=== PATIENT | female | born 1960 | race Caucasian/White ===

== ENCOUNTER 2021-10-25 17:06 | Emergency (ER) | payer MEDICARE, OTHER ==
[~2021-10-25] VITALS: Ht 167.6 cm; Wt 86.2 kg
--- NOTE | 2021-10-25 18:43 | NUR ---
pt ambulated to room 6 connected to monitor. 61 y/o female with LLQ abd pain x 2 days, denies burning with urination, abd soft tender LLQ, BSx4 active. PMHX total hyst 2005, reports nausea denies vomiting. ERP notified.
[2021-10-25 18:56] VITALS: BP 151/94
--- NOTE | 2021-10-25 19:00 | NUR ---
saline lock 20 sherry started in left AC aseptic tech secured with tegaderm and tape flushed with NS . blood drawn for lab prior to saline flush, urine collected for lab,
[2021-10-25] MEDS ORDERED: NS 1000ML 1,000 ML IV STA (19:07)
[2021-10-25] MEDS ORDERED: ZOFRAN IV STA (19:07)
--- NOTE | 2021-10-25 19:13 | ER.PDOC ---
General Chief Complaint: Requesting Medical Care Stated Complaint: LOWER ABD PAIN Time seen by MD: 19:10 Source: patient Exam Limitations: no limitations History of Present Illness Initial Comments Abdominal pain and nausea for 2 days. No vomiting or diarrhea. No fever or chills. Timing/Duration: constant Severity/Quality: moderate, sharpness Radiation: no radiation Associated Symptoms: nausea/vomiting Exacerbated by: nothing Relieved By: nothing Vital Signs First Vital Signs Date Time Temp Pulse Resp B/P (MAP) Pulse Ox O2 Delivery O2 Flow Rate FiO2 10/25/21 18:56 99.1 105 20 10/25/21 18:56 151/94 (113) 97 Room Air Last Vital Signs Date Time Temp Pulse Resp B/P (MAP) Pulse Ox O2 Delivery O2 Flow Rate FiO2 10/25/21 20:31 85 20 137/78 (97) 98 Room Air 10/25/21 20:02 99.1 Past Medical History Medical History: asthma, COPD, GERD, hypertension Surgical History: hysterectomy Family History Significant Family History: no pertinent family hx Social History Smoking: non-smoker Alcohol Use: none Drug Use: none Constitutional: no symptoms reported EENTM: no symptoms reported Respiratory: no symptoms reported Cardiovascular: no symptoms reported Gastrointestinal: see HPI All Other Systems: Reviewed and Negative Physical Exam General Appearance: No Apparent Distress, WD/WN Neck: Non-Tender, Full Range of Motion, Supple, Normal Inspection Respiratory: chest non-tender, lungs clear, normal breath sounds, no respir atory distress, no accessory muscle use Cardiovascular: Normal Peripheral Pulses, Regular Rate, Rhythm, No Edema, No Gallop, No JVD, No Murmur Gastrointestinal: Normal Bowel Sounds, No Organomegaly, No Pulsatile Mass, Guarding, Tenderness (LLQ) Back: Normal Inspection, No CVA Tenderness, No Vertebral Tenderness Extremities: Normal Range of Motion, Non-Tender, Normal Inspection, No Pedal Edema, No Calf Tenderness, Normal Capillary Refill, Pelvis Stable Neurologic/Psychiatric: chief of production II-XII NML as Tested, No Motor/Sensory Deficits, Alert, Normal Mood/Affect, Oriented x 3 Skin: Normal Color, Warm/Dry Lymphatic: No Adenopathy Results/Orders Results/Orders Orders - MAYO MORGAN MD Cbc With Auto Diff (10/25/21 19:07) Comprehensive Metabolic Panel (10/25/21 19:07) Ct Abd/Pel With Iv Contrast (10/25/21 19:07) Urinalysis (10/25/21 19:07) Basic Metabolic Panel (10/25/21 19:07) 0.9 % Sodium Chloride (Ns 1000ml) (10/25/21 19:07) Ondansetron Hcl/Pf (Zofran) (10/25/21 19:07) 0.9 % Sodium Chloride (Ns 1000ml) (10/25/21 19:23) Ondansetron Hcl/Pf (Zofran) (10/25/21 19:24) Morphine Sulfate (Morphine Sulfate) (10/25/21 19:26) Morphine Sulfate (Morphine Sulfate) (10/25/21 19:36) Vital Signs Date Time Temp Pulse Resp B/P (MAP) Pulse Ox O2 Delivery O2 Flow Rate FiO2 10/25/21 20:31 85 20 137/78 (97) 98 Room Air 10/25/21 20:02 99.1 90 20 151/74 (99) 97 Room Air 10/25/21 18:56 99.1 105 20 97 10/25/21 18:56 99.1 105 20 151/94 (113) 97 Room Air 10/25/21 18:56 99.1 105 20 Administered Medications Medications (Trade) Dose Ordered Sig/Crissy Route PRN Reason Start Time Stop Time Status Last Admin Dose Admin Morphine Sulfate (Morphine Sulfate) 4 mg STAT STAT IV 10/25/21 19:26 10/25/21 19:28 DC 10/25/21 19:40 4 MG Ondansetron HCl (Zofran) 4 mg STAT STAT IV 10/25/21 19:07 10/25/21 19:10 DC 10/25/21 19:33 4 MG Sodium Chloride 1,000 ml @ 1,000 mls/hr Q1H STAT IV 10/25/21 19:07 10/25/21 20:06 DC 10/25/21 19:32 1,000 MLS/HR Laboratory Tests Test 10/25/21 00:00 10/25/21 19:16 Urine Collection Type UNKNOWN Urine Color YELLOW Urine Appearance CLEAR Urine Bilirubin NEGATIVE (NEGATIVE) Urine Ketones NEGATIVE (NEGATIVE) Urine Specific [place] <=1.005 (1.005-1.030) Urine pH 6.0 (4.5-8.0) Urine Protein NEGATIVE (NEGATIVE) Urine Urobilinogen 0.2 E.U./dL (0.2) Urine Nitrate NEGATIVE (NEGATIVE) Urine Leukocyte Esterase NEGATIVE (NEGATIVE) Urine Glucose (Auto)(UA) NEGATIVE (NEGATIVE) Urine Blood NEGATIVE (NEGATIVE) White Blood Count 11.5 10^3/uL (4.5-11.0) H Red Blood Count 5.14 10^6/uL (4.00-5.20) Hemoglobin 15.0 g/dL (12.0-15.0) Hematocrit 46.3 % (36.0-46.0) H Mean Corpuscular Volume 90.1 fL (78-100) Mean Corpuscular Hemoglobin 29.2 pg (26-34) Mean Corpuscular Hemoglobin Concent 32.4 g/dL (33-36.5) L Red Cell Distribution Width 12.8 % (11.5-14.5) Platelet Count 322 10^3/uL (150-400) Mean Platelet Volume 9.4 fL (7.8-11.0) Neutrophils (%) (Auto) 74.5 % (41.0-85.0) Lymphocytes (%) (Auto) 16.7 % (24.0-44.0) L Monocytes (%) (Auto) 6.2 % (5.0-12.0) Neutrophils # (Auto) 8.6 10^3/uL (1.8-7.7) H Lymphocytes # (Auto) 1.93 10^3/uL1 (1.0-4.8) Monocytes # (Auto) 0.7 10^3/uL (0.3-0.8) Absolute Immature Granulocyte (auto 0.02 10^3 u/L (0-2) Absolute Eosinophils (auto) 0.2 10^3/uL (0.0-0.2) Immature Granulocytes % 0.20 % (0.00-0.50) Eosinophils % 2.0 % (0.0-5.0) Basophils % 0.4 % (0.0-0.2) H Basophils # 0.1 10^3/uL (0.0-0.1) Sodium Level 140 mmol/L (132-145) Potassium Level 3.9 mmol/L (3.6-5.2) Chloride Level 102.0 mmol/L (96-109) Carbon Dioxide Level 25.9 mmol/L (20.0-32) Glucose Level 104 mg/dL (70-110) Blood Urea Nitrogen 12 mg/dL (7-18) Creatinine 1.03 mg/dL (0.59-1.40) Calcium Level 9.8 mg/dL (8.4-10.5) Anion Gap 16.0 Estimated GFR () 65.9 (>/=60) Est GFR (CKD-EPI)(Non-Afr [place]uran) 54.5 (>/=60) BUN/Creatinine Ratio 11.0 Total Bilirubin 0.5 mg/dL (0.2-1.0) Aspartate Amino Transferase (AST) 15 U/L (0-35) Alanine Aminotransferase (ALT) 19 U/L (12-78) Alkaline Phosphatase 75 U/L (50-136) Total Protein 8.2 g/dL (6.4-8.2) Albumin 3.9 g/dL (3.4-5.0) Globulin 4.3 Albumin/Globulin Ratio 0.[address] abdomen/pelvis shows Diverticulitis of sigmoid colon. Urinalysis is normal. WBC is 11.5. Chemistry is unremarkable. Patient received NS, Zofran, morphine, Cipro and Flagyl. She is ready to go home. ER DEPART Departure Time of Disposition: 20:53 Disposition: 01 HOME / SELF CARE / HOMELESS Impression: Primary Impression: Acute diverticulitis Condition: Improved Referrals: UNDEFINED,PHYSICIAN (PCP) PRIMARY CARE PROVIDER Additional Instructions: Ciprofloxacin Flagyl Tramadol Follow-up with your PCP in 2 to 3 days Return to ED if worsening symptoms or concerns Duration or Time Spent with Pa: 60 min MAYO MORGAN MD Oct 25, 2021 19:13
[2021-10-25] MEDS ORDERED: NS 1000ML 1,000 ML ONE (19:23)
[2021-10-25] MEDS ORDERED: ZOFRAN ONE (19:24)
[2021-10-25] MEDS ORDERED: MORPHINE SULFATE IV STA (19:26)
[2021-10-25 19:30] LABS: BASOPHIL # 0.1 10^3/uL (0.0-0.1); BASOPHIL % 0.4 % (0.0-0.2); EOSINOPHIL # 0.2 10^3/uL (0.0-0.2); LYMPHOCYTES # 1.93 10^3/uL1 (1.0-4.8); LYMPHOCYTES % 16.7 % (24.0-44.0); MEAN CORP HGB 29.2 pg (26-34); MONOCYTES # 0.7 10^3/uL (0.3-0.8); MONOCYTES % 6.2 % (5.0-12.0); NEUTROPHIL # 8.6 10^3/uL (1.8-7.7); NEUTROPHILS % 74.5 % (41.0-85.0); PLATELET COUNT 322 10^3/uL (150-400); RED CELL DISTRIBUTION WIDTH 12.8 % (11.5-14.5)
[2021-10-25] MEDS ORDERED: MORPHINE SULFATE ONE (19:36)
[2021-10-25 19:42] LABS: CARBON DIOXIDE 25.9 mmol/L (20.0-32)
[2021-10-25 19:52] LABS: BILIRUBIN,URINE NEGATIVE (NEGATIVE); UROBILINOGEN,URINE 0.2 E.U./dL (0.2)
--- NOTE | 2021-10-25 20:01 | NUR ---
pt to CT
[2021-10-25 20:02] VITALS: BP 151/74
--- NOTE | 2021-10-25 20:07 | NUR ---
Pt returned from CT moitord reconnected.
[2021-10-25 20:31] VITALS: BP 137/78
--- NOTE | 2021-10-25 20:46 | DIREP ---
PROCEDURE:CT ABDOMEN/PELVIS W/ CONTRAST COMPARISON:None. INDICATIONS:LLQ pain TECHNIQUE:Axial images were created through the abdomen and pelvis with non-ionic intravenous contrast material. No oral contrast was administered. Sagittal and coronal reconstructions were performed from source images. FINDINGS: LUNG BASES:Normal. No visible pulmonary or pleural disease. LIVER:Normal. No significant liver lesions are identified. BILIARY:Normal. No visible dilatation or calcification. PANCREAS:Minimal fatty atrophy of the pancreatic head. No mass detected SPLEEN:Normal. No enlargement or focal lesion. ADRENALS:Normal. No mass or enlargement. URINARY TRACT:Normal. No focal lesions or hydronephrosis. AORTA/VASCULAR:Normal. No aneurysm. RETROPERITONEUM:Normal. No mass or adenopathy. BOWEL/MESENTERY:Borderline dilated small bowel loops in left lower quadrant. Right-sided abdomen unremarkable. Unable to identify the appendix, normal or abnormal. Diverticulosis of the descending colon and sigmoid colon. There is pericolonic inflammation in the mesentery of the sigmoid colon in the mid pelvis typical of diverticulitis. A focal fluid collection is not demonstrated. ABDOMINAL WALL:Normal. No mass or hernia. PELVIC ORGANS:Uterus is absent BONES:Normal for age. No bony lesion or acute fracture. OTHER:Negative. CONCLUSION:Diverticulitis sigmoid colon. Dictated by: Jazmin Jamison MD on 10/25/2021 at 08:40 PM
[2021-10-25] MEDS ORDERED: FLAGYL ONE (20:51)
[2021-10-25] MEDS ORDERED: FLAGYL PO STA (20:51)
[2021-10-25] MEDS ORDERED: CIPRO PO STA (20:51)
[2021-10-25] MEDS ORDERED: CIPRO ONE (20:51)
--- NOTE | 2021-10-25 21:05 | NUR ---
IV DC'D TIP INTACT, NO BLEEDING
== END 2021-10-25 21:10 | disposition home or self-care (01) ==
LOC: ER 17:06
DX: K57.92 Diverticulitis of intestine, part unspecified, without perforation or abscess without bleeding (principal); I10 Essential (primary) hypertension; J44.9 Chronic obstructive pulmonary disease, unspecified; K21.9 Gastro-esophageal reflux disease without esophagitis; Z79.899 Other long term (current) drug therapy; Z90.710 Acquired absence of both cervix and uterus
CPT/HCPCS: 36415; 74177; 80048; 80053; 81003; 85025; 96361; 96374; 96375; 99285; J2270; J2405; J7030; Q9965